=== PATIENT | male | born 1990 | race Hispanic/Latino ===

== ENCOUNTER 2017-06-01 17:39 | Emergency (ER) | payer SELFPAY ==
[2017-06-01 17:52] VITALS: BP 143/73; PULSE 87; RESP 18; TEMP 98.6; O2SAT 99
[2017-06-01] MEDS ORDERED: Sodium Chloride 0.9% 500 ML IV STA (19:05)
--- NOTE | 2017-06-01 19:42 | ED PDOC ---
Syncope/Near Syncope/Dizziness Time Seen by Provider: 06/01/17 18:39 Chief Complaint (Nursing): Dizziness/Lightheaded Chief Complaint (Provider): Dizziness History Per: Patient History/Exam Limitations: no limitations Onset/Duration Of Symptoms: Days (x1) Current Symptoms Are (Timing): Still Present Associated Symptoms Preceding Syncopal Episode: Vertigo Fall Associated With With Symptoms: No Additional Complaint(s): Khoa Aviles is a 27 year old male, with a past medical history of kidney stones and pericarditis, who presents to the emergency department complaining of vertiginous dizziness associated with a mild headache pressure and nausea onset for one day. He states the dizziness is more intense than the headache and feels confused. He reports seeing spots but denies any blurry vision and vomit. Patient states symptoms began when he was at the gym, he walked home and after 30 min the headache started. 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 PMD: None provided Past Medical History Reviewed: Historical Data, Nursing Documentation, Vital Signs Vital Signs: Last Vital Signs Temp 98.6 F 06/01/17 17:50 Pulse 87 06/01/17 17:50 Resp 18 06/01/17 17:50 BP 143/73 06/01/17 17:50 Pulse Ox 99 06/01/17 17:50 - Medical History PMH: Kidney Stones, Pericarditis (x2 episodes) Other PMH: Hand cellulitis - Surgical History Surgical History: Cholecystectomy - Family History Family History: States: Other Other Family History: Vertigo - Social History Current smoker - smoking cessation education provided: Yes Alcohol: Occasional (once a year) Drugs: Denies - Home Medications Home Medications: Ambulatory Orders Medication Instructions Recorded Diazepam [Valium] 2 mg PO BID PRN #10 tab 06/01/17 Meclizine [Antivert] 25 mg PO Q6 #30 tab 06/01/17 - Allergies Allergies/Adverse Reactions: Allergies Allergy/AdvReac Type Severity Reaction Status Date / Time No Known Allergies Allergy Verified 06/01/17 17:50 Review of Systems ROS Statement: Except As Marked, All Systems Reviewed And Found Negative (and as per HPI) Gastrointestinal: Positive for: Nausea. Negative for: Vomiting Neurological: Positive for: Confusion, Headache (mild pressure), Dizziness ( vertiginous), Other (seeing spots but no blurry vision). Negative for: Weakness (no focal weakness), Incoordination, Change in Speech Physical Exam - Reviewed Nursing Documentation Reviewed: Yes Vital Signs Reviewed: Yes - Physical Exam Appears: Positive for: Well, Non-toxic Head Exam: Positive for: ATRAUMATIC, NORMOCEPHALIC Skin: Positive for: Warm, Dry Eye Exam: Positive for: EOMI, PERRL. Negative for: Nystagmus ENT: Positive for: Other (tacky muc membranes). Negative for: Pharyngeal Erythema, Tonsillar Exudate Neck: Positive for: Painless ROM, Supple Cardiovascular/Chest: Positive for: Regular Rate, Rhythm, Chest Non Tender. Negative for: Murmur Respiratory: Positive for: Normal Breath Sounds. Negative for: Wheezing, Respiratory Distress Gastrointestinal/Abdominal: Positive for: Soft. Negative for: Tenderness Back: Positive for: Normal Inspection. Negative for: Vertebral Tenderness Extremity: Positive for: Normal ROM. Negative for: Calf Tenderness, Deformity Lymphatic: Negative for: Adenopathy Neurologic/Psych: Positive for: Alert, television presenter II-XII (intact), Oriented (x3), Mood/ Affect (normal), Cerebellar Tests ( normal), Other (Acosta Hallpike testing increases symptoms in both directions, but no nystagmus illicited). Negative for: Motor/Sensory Deficits, Aphasia, Facial Droop - Laboratory Results Result Diagrams: 06/01/17 20:29 06/01/17 20:29 - ECG O2 Sat by Pulse Oximetry: 99 Pulse Ox Interpretation: Normal Medical Decision Making Medical Decision Making: Initial Impression: Vertigo and Headache differential include BPPV, dehydration , electrolyte anormality, brain mass, and labyrinthitis Initial Plan: --Head w/o contrast [CT] --EKG --Bloodwork --Urine Dipstick --Antivert 50 mg PO --NS IV 500 ml at 500 mls/hr --Zofran Inj 4 mg IVP --reevaluation EXAM: CT Head Without Intravenous Contrast CLINICAL HISTORY: 27 years old, male; Signs and symptoms; Dizziness TECHNIQUE: Axial computed tomography images of the head/brain without intravenous contrast. This CT exam was performed using one or more of the following dose reduction techniques: automated exposure control, adjustment of the mA and/or kV according to patient size, and/or use of iterative reconstruction technique. Coronal and sagittal reformatted images were created and reviewed. COMPARISON: No relevant prior studies available. FINDINGS: Brain: Unremarkable. No hemorrhage. No significant white matter disease. No edema. Ventricles: Unremarkable. No ventriculomegaly. Bones/joints: Unremarkable. No acute fracture. Soft tissues: Unremarkable. Sinuses: Unremarkable as visualized. No acute sinusitis. Mastoid air cells: Unremarkable as visualized. No mastoid effusion. IMPRESSION: No evidence of acute intracranial pathology. Thank you for allowing us to participate in the care of your patient. Dictated and Authenticated by: Abdirahman Byrd MD 06/01/2017 8:20 PM Eastern Time ([place] & [place]) On reeval, pt reports persistent head pressure and dizziness with movement of the head. He also reports that since he has been in the bed, both feet have been getting pins and needles. Advised to sit up on bed with feet hanging to see if the relieves foot symptoms. Addn'l valium and toradol ordered to relieve dizziness. DW pt findings 11p On reeval pt feels better. DW pt plan of care. Rx Valium, antivert, zofran. Neuro followup. PMD followup Scribe Attestation: Documented by Devaughn Tejada, acting as a scribe for Yuli Mahoney MD. Provider Scribe Attestation: All medical record entries made by the Scribe were at my direction and personally dictated by me. I have reviewed the chart and agree that the record accurately reflects my personal performance of the history, physical exam, medical decision making, and the department course for this patient. I have also personally directed, reviewed, and agree with the discharge instructions and disposition. Disposition - Clinical Impression Clinical Impression: Vertigo Counseled Patient/Family Regarding: Studies Performed, Diagnosis, Need For Followup, Rx Given - Disposition Referrals: Jaspal Rawls MD [Medical Doctor] - (CALL TOMORROW TO SETUP APPOINTMENT) Disposition: Routine/Home Disposition Time: 23:00 Condition: IMPROVED Additional Instructions: FOLLOW UP WITH NEUROLOGIST IN 1-2 WEEKS FOR FURTHER MANAGEMENT Prescriptions: Diazepam [Valium] 2 mg PO BID PRN #10 tab PRN Reason: Intractable dizziness Meclizine [Antivert] 25 mg PO Q6 #30 tab Instructions: Dizziness (ED) Forms: [facility] ED School/Work Excuse
[2017-06-01 20:39] LABS: BASO % 0.4 % (0.0-2.0); EOS # 0.1 K/uL (0.0-0.7); EOS % 1.2 % (0.0-4.0); HEMATOCRIT 48.7 % (35.0-51.0); LYMPH # 2.2 K/uL (1.0-4.3); LYMPH % 21.9 % (20.0-40.0); MEAN CELL VOLUME 85.2 fl (80.0-94.0); MEAN CORPUSCULAR HEMOGLOBIN 28.7 pg (27.0-31.0); MEAN CORPUSCULAR HGB CONC 33.7 g/dL (33.0-37.0); MEAN PLATELET VOLUME 6.8 fl (7.2-11.7); MONO # 0.9 K/uL (0.0-0.8); MONO % 8.7 % (0.0-10.0); NEUT # 6.8 K/uL (1.8-7.0); NEUT % 67.8 % (50.0-75.0); NRBC % 0.1 % (0.0-0.0); RED CELL DISTRIBUTION WIDTH 12.9 % (11.5-14.5)
[2017-06-01 20:43] LABS: ALB/GLOB RATIO 1.4 (1.0-2.1); ALKALINE PHOSPHATASE 77 U/L (38-126); ALT/SGPT 57 U/L (21-72); AST/SGOT 40 U/L (17-59); BILIRUBIN,TOTAL 0.9 mg/dl (0.2-1.3); BLOOD UREA NITROGEN 19 mg/dl (9-20); CALCIUM 9.1 mg/dL (8.4-10.2); CARBON DIOXIDE 23 mmol/L (22-30); CHLORIDE 107 mmol/L (98-107); GFR AFRICAN-AMERICAN > 60; GLUCOSE,RANDOM 101 mg/dL (75-110); POTASSIUM 3.7 MMOL/L (3.6-5.0); SODIUM 141 mmol/l (132-148); TOTAL PROTEIN 6.9 G/DL (6.3-8.2)
[2017-06-01] MEDS ORDERED: diaZEpam 10 mg/2 ml Inj IVP ONE (21:29)
[2017-06-01] MEDS ORDERED: diaZEpam 10 mg/2 ml Inj ONE (21:48)
--- NOTE | 2017-06-02 07:51 | CT ---
PROCEDURE: CT HEAD WITHOUT CONTRAST. HISTORY: dizziness COMPARISON: None available. TECHNIQUE: Axial computed tomography images were obtained through the head/brain without intravenous contrast. Coronal and sagittal reconstructed images. Radiation dose: Total exam DLP = 868.39 mGy-cm. This CT exam was performed using one or more of the following dose reduction techniques: Automated exposure control, adjustment of the mA and/or kV according to patient size, and/or use of iterative reconstruction technique. FINDINGS: HEMORRHAGE: No intracranial hemorrhage. BRAIN: No mass effect or edema. No atrophy or chronic microvascular ischemic changes. VENTRICLES: Unremarkable. No hydrocephalus. CALVARIUM: Unremarkable. PARANASAL SINUSES: Unremarkable as visualized. No significant inflammatory changes. MASTOID AIR CELLS: Unremarkable as visualized. No inflammatory changes. OTHER FINDINGS: None. IMPRESSION: No acute intracranial abnormalities. No significant findings to account for the clinical presentation. Concordant results (preliminary interpretation) provided by [facility]. Procedure Completed: 19:22 Preliminary ([facility]) Report: Dictated and Authenticated: 20:20. Final Interpretation: 07:49. June 02, 2017.
--- NOTE | 2017-06-02 17:43 | CARD ---
APPROVED REPORT EKG Measurement Heart [id number] <Conclusion> Normal sinus rhythm Normal ECG
== END 2017-06-01 23:50 | disposition home or self-care (01) ==
LOC: H.ER 17:39
DX: R42 Dizziness and giddiness (principal)
CPT/HCPCS: 70450; 80053; 82550; 84484; 85025; 93005; 96374; 96375; 99284; J1885; J2405; J3360; J7040